=== PATIENT | male | born 1960 | race Caucasian/White ===

== ENCOUNTER 2020-05-27 19:09 | Emergency (ER) | payer BC ==
[~2020-05-27] VITALS: Ht 182.9 cm; Wt 104.3 kg
[~2020-05-27 19:09] MED LIST: IBUP400
== END 2020-05-27 20:47 | disposition home or self-care (01) ==
LOC: ER 19:09
DX: M25.552 Pain in left hip (principal)
CPT/HCPCS: 73502; 99283-25